=== PATIENT | female | born 1985 | race African-American/Black ===

== ENCOUNTER 2024-04-23 22:38 | Emergency (ER) | payer BC, MEDICAID ==
[~2024-04-23] VITALS: Ht 160 cm; Wt 59.0 kg
[2024-04-24 01:09] LABS: BASOPHILS # (AUTO) 0.2 K/UL (0.0-0.2); BASOPHILS % (AUTO) 1.3 % (0.0-2.0); EOSINOPHILS # (AUTO) 0.4 K/uL (0.0-0.7); EOSINOPHILS % (AUTO) 2.8 % (0.0-7.0)
[2024-04-24 01:10] LABS: LYMPHOCYTES # (AUTO) 3.1 K/uL (0.8-4.8); LYMPHOCYTES % (AUTO) 21.2 % (20.5-51.5); MEAN CORPUSCULAR HEMOGLOBIN 29.7 uug (24.7-32.8); MEAN CORPUSCULAR HGB CONC 35 g/dL (32.3-35.6); MEAN CORPUSCULAR VOLUME 84.8 fL (75.5-95.3); MONOCYTES # (AUTO) 0.5 K/uL (0.1-1.30); MONOCYTES % (AUTO) 3.5 % (0.0-11.0); NEUTROPHILS # (AUTO) 10.4 K/uL (1.8-8.9); NEUTROPHILS % (AUTO) 71.2 % (38.5-71.5); PLATELET COUNT (AUTO) 313 K/uL (179-408); RED CELL DISTRIBUTION WIDTH 19.6 % (12.3-17.7); WHITE BLOOD COUNT (AUTO) 14.6 K/uL (3.8-11.8)
[2024-04-24 01:13] LABS: RED BLOOD CELL COUNT(AUTO) 2.36 MIL/uL (3.63-4.92)
[2024-04-24 01:14] LABS: DIFFERENTIAL COMMENT 1
[2024-04-24] MEDS ORDERED: ONDANSETRON 4 MG/2 ML VIAL ONE (01:16)
[2024-04-24] MEDS ORDERED: HYDROMORPHONE 1 MG/1 ML DISP.SYRIN ONE (01:16)
[2024-04-24] MEDS: IV NORMAL SALINE 1000 ML BAG IV ONE (01:17)
[2024-04-24] MEDS: HYDROMORPHONE 1 MG/1 ML DISP.SYRIN IV ONE (01:17)
[2024-04-24] MEDS: ONDANSETRON 4 MG/2 ML VIAL IV ONE (01:17)
[2024-04-24 01:24] LABS: ALANINE AMINOTRANSFERASE 14 U/L (14-59); ALBUMIN 4.3 g/dL (3.4-5.0); ALKALINE PHOSPHATASE 63 U/L (50-136); ASPARTATE AMINOTRANSFERASE 33 U/L (15-37); BILIRUBIN,DIRECT 0.4 mg/dL (0.0-0.2); BILIRUBIN,TOTAL 1.6 mg/dL (0.2-1.0); CALCIUM 8.5 mg/dL (8.5-10.1); CARBON DIOXIDE 23 mmol/L (21-32); CHLORIDE 112 mmol/L (98-107); CREATININE 0.8 mg/dL (0.6-1.3); GLUCOSE 91 mg/dL (74-106); LIPASE 52 U/L (16-77); POTASSIUM 4.3 mmol/L (3.5-5.1); SODIUM SERUM 146 mmol/L (136-145); TOTAL PROTEIN, SERUM 7.8 g/dL (6.4-8.2); UREA NITROGEN, BLOOD 8 mg/dL (7-18)
[2024-04-24 02:07] LABS: PREGNANCY TEST SERUM QUAN < 1 miul/L (0-6)
[2024-04-24] MEDS ORDERED: IOHEXOL 300MG/ML 100 ML INFUS..BTL ONE (02:39)
[2024-04-24] MEDS ORDERED: SWABABLE VALVE TRANSFER SET EA MC ONE (02:39)
[2024-04-24 07:42] LABS: IRON, SERUM 49 ug/dL (50-175)
[2024-04-24] MEDS ORDERED: ACET1TAB23 PO (10:23)
[2024-04-24 10:47] VITALS: BP 129/70; O2SAT 96
== END 2024-04-24 10:49 | disposition home or self-care (01) ==
LOC: ER 23:15
DX: D50.9 Iron deficiency anemia, unspecified (principal); R10.2 Pelvic and perineal pain; D58.9 Hereditary hemolytic anemia, unspecified; Z88.7 Allergy status to serum and vaccine
CPT/HCPCS: 99285; 74177; 96374; 76856; 96361; 96375; 80076; 80048; 82607; 83550; 83690; 85025; 86850; 86900; 86901; 86920; 84702; 36415; 83010; J2405; Q9967; J1171; J7040 ×2; 70030-TC; A4606; A4663